=== PATIENT | male | born 1955 | race Caucasian/White ===

== ENCOUNTER 2021-04-12 07:16 | Outpatient (CLI) | payer MEDICARE, SELFPAY ==
--- NOTE | ~2021-04-12 | PE_ITS ---
EXAMINATION: PET skull to mid thigh DATE: 04/12/2021 10:12 INDICATION: Multiple pulmonary nodules TECHNIQUE: Blood glucose level was 94 mg/dL. 0.113 mCi of 18-fluorodeoxyglucose (18-FDG) was administered i.v. Low dose computed tomography (CT) i mages were acquired from the base of the brain to the proximal thighs for attenuation correction and anatomic localization. Positron emission tomography (PET) images were acquired in the same distributi on beginning 51 minutes after injection. The dose-length product (DLP) was 475.31 mGy-cm. COMPARISON: Outside hospital CT dated 03/25/2021 FINDINGS: Head/neck: No abnormal FDG uptake is identified. Minimal FDG uptake in the oral cavity without suspic ious CT correlate is likely physiologic. Chest: No abnormal FDG uptake is identified. There is moderate emphysema. Dependent atelectasis is no swapnil. A few small pulmonary nodules are below size threshold for PET CT evaluation. The largest measur es 6 mm in the superior segment of the right lower lobe and does not demonstrate FDG uptake.. Calcifi ed pulmonary nodules are consistent with old granulomatous disease. Cardiomegaly is noted. No patholo gically enlarged thoracic lymph nodes are identified. There are changes of coronary artery bypass gra fting. Abdomen/pelvis/proximal thighs: No abnormal FDG uptake is identified. Physiologic FDG activity is pre sent in the bowel and urinary tract. The liver, pancreas, gallbladder, and adrenal glands are normal. Punctate calcifications in an otherwise normal spleen likely represent healed granulomatous disease. There is an 11 mm cyst of the left kidney. The right kidney is unremarkable. There is calcified athe rosclerosis of the aorta and many of the other arteries. No pathologically enlarged abdominal or pelv ic lymph nodes are identified. There is no free intraperitoneal gas or evidence of bowel obstruction. Musculoskeletal: No abnormal FDG uptake is identified. There is moderate lower lumbar spondylosis. Mi ld thoracic spondylosis is noted. IMPRESSION: 1. Pulmonary nodules measuring up to 6 mm in the right lower lobe without abnormal FDG uptake but too small for definitive PET CT characterization. 2. Moderate emphysema Reviewed, dictated and finalized at location [facility]. IMPRESSION: 1. Pulmonary nodules measuring up to 6 mm in the right lower lobe without abnor mal FDG uptake but too small for definitive PET CT characterization. 2. Moderate emphysema
[2021-04-12 08:09] LABS: Glucose Point of Care 94 mg/dl (65-105)
== END 2021-04-12 07:17 | disposition home or self-care (01) ==
PROVIDERS: PCP Internal Medicine; Visit Provider Internal Medicine
DX: R91.8 Other nonspecific abnormal finding of lung field (principal)
CPT/HCPCS: 78815; A9552

== ENCOUNTER 2024-12-09 12:21 | Outpatient (CLI) | payer MEDICARE, SELFPAY ==
--- NOTE | ~2024-12-09 | CT_ITS ---
CT Scan of the Chest without Contrast: Clinical Indication: Pulmonary nodules Technique: Contiguous sections were acquired throughout the chest without intravenous contrast. Dose reduction technique was used on this scan by utilizing automated exposure control and iterative recon struction technique. The dose-length product (DLP) was 67.88 mGy-cm. Findings: There is no evidence of any significant mediastinal, hilar or axillary lymphadenopathy. There are cor onary artery calcifications with evidence of prior CABG. There is no evidence of pleural or pericardial effusion. 4 mm medial right upper lobe nodule present (axial image 45). Small triangle nodule present in the ri ght lower lobe (axial image 62).. There is advanced emphysema. Images through the upper abdomen reveal no abnormalities. Impression: Subcentimeter nodules, as above, most likely benign. Consider one-year follow-up exam in a high-risk patient. Advanced emphysema. Reviewed, dictated and finalized at [facility]. Impression: Subcentimeter nodules, as above, most likely benign. Consider one-year follow-u p exam in a high-risk patient. Advanced emphysema.
== END 2024-12-09 12:22 | disposition home or self-care (01) ==
LOC: MICIMG 12:22
PROVIDERS: PCP Internal Medicine; Visit Provider Internal Medicine
DX: R91.8 Other nonspecific abnormal finding of lung field (principal); J43.9 Emphysema, unspecified
CPT/HCPCS: 71250